=== PATIENT | female | born 1965 | race Hispanic/Latino ===

== ENCOUNTER → 2018-10-23 | Outpatient (CLI) | payer OTHER, MEDICARE | END | disposition home or self-care (01) | LOC: RAH 08:23 | PROVIDERS: ATTEND Internal Medicine | DX: Z12.31 Encounter for screening mammogram for malignant neoplasm of breast (principal) | CPT/HCPCS: 77067 ==

== ENCOUNTER → 2018-12-05 | Outpatient (CLI) | payer OTHER, MEDICARE | END | disposition home or self-care (01) | LOC: RAH 11:43 | PROVIDERS: ATTEND Internal Medicine | DX: I25.10 Atherosclerotic heart disease of native coronary artery without angina pectoris (principal); E66.01 Morbid (severe) obesity due to excess calories; M47.815 Spondylosis without myelopathy or radiculopathy, thoracolumbar region | CPT/HCPCS: 71046 ==

== ENCOUNTER → 2019-08-26 | Outpatient (CLI) | payer OTHER, MEDICARE | END | disposition home or self-care (01) | LOC: RAH 13:04 | PROVIDERS: ATTEND Internal Medicine | DX: M17.0 Bilateral primary osteoarthritis of knee (principal) | CPT/HCPCS: 73562 ==

== ENCOUNTER → 2020-04-26 | Outpatient (CLI) | payer OTHER, MEDICARE | END | disposition home or self-care (01) | LOC: RAH 10:38 | PROVIDERS: ATTEND Internal Medicine | DX: S62.626A Displaced fracture of middle phalanx of right little finger, initial encounter for closed fracture (principal); X58.XXXA Exposure to other specified factors, initial encounter; Y93.89 Activity, other specified; Y92.89 Other specified places as the place of occurrence of the external cause; Y99.8 Other external cause status | CPT/HCPCS: 73130 ==

== ENCOUNTER → 2020-12-27 | Outpatient (CLI) | payer OTHER, MEDICARE | END | disposition home or self-care (01) | LOC: RAH 09:39 | PROVIDERS: ATTEND Obstetrics & Gynecology | DX: Z12.31 Encounter for screening mammogram for malignant neoplasm of breast (principal) | CPT/HCPCS: 77067 ==

== ENCOUNTER 2022-12-09 02:27 | Observation (INO) | payer OTHER, MEDICARE ==
[~2022-12-09] VITALS: Ht 170.2 cm; Wt 80.4 kg
[2022-12-09 02:47] LABS: BASOPHILS % (AUTO) 0.7 % (0.0-5.0); HEMATOCRIT 41.1 % (36-48); LYMPHOCYTES % (AUTO) 19.3 % (21.0-51.0); MEAN CORPUSCULAR HEMOGLOBIN 30.8 pg (27.0-33.0); MEAN CORPUSCULAR HGB CONC 33.1 g/dL (32.0-36.0); MEAN CORPUSCULAR VOLUME 93.2 fL (79-99); MONOCYTES % (AUTO) 8.5 % (3.0-13.0); NEUTROPHILS % (AUTO) 70.2 % (40.0-77.0); PLATELET COUNT (AUTO) 326 K/uL (130-400); RED BLOOD CELL COUNT(AUTO) 4.41 MIL/uL (4.00-5.50); RED CELL DISTRIBUTION WIDTH 12.6 % (11.0-15.5)
[2022-12-09 02:58] LABS: CREATININE 0.6 mg/dL (0.5-1.5); POTASSIUM 3.8 mmol/L (3.5-5.1)
[2022-12-09] MEDS ORDERED: ONDANSETRON 4MG INJ IVP ONE (03:00)
[2022-12-09] MEDS ORDERED: ASPIRIN 81MG CHEW TAB PO ONE ×2 (03:00)
[2022-12-09 03:03] LABS: ALBUMIN 3.8 g/dL (3.5-5.0); TOTAL PROTEIN, SERUM 8.1 g/dL (6.0-8.3)
[2022-12-09] MEDS: NITROGLYCERIN 0.4 MG SL TAB SL ONE ×2 (03:09→03:11)
[2022-12-09] MEDS: NITROGLYCERIN 0.4 MG SL TAB SL PRN ×2 (03:11→05:51)
[2022-12-09] MEDS ORDERED: TEMAZEPAM 15 MG CAPSULE PO PRN (04:00)
[2022-12-09] MEDS ORDERED: LACTULOSE 20 GM/30 ML UDCUP PO PRN (04:00)
[2022-12-09] MEDS ORDERED: CLONIDINE HCL 0.1 MG TABLET PO PRN (04:00)
[2022-12-09] MEDS ORDERED: ONDANSETRON 4MG INJ IVP PRN (04:00)
[2022-12-09] MEDS ORDERED: HYDRALAZINE 20MG/ML VIAL IV PRN (04:00)
[2022-12-09 04:05] LABS: INR 0.93 (0.85-1.15); PROTHROMBIN TIME 9.5 SEC (9.6-11.6)
[2022-12-09 04:06] LABS: PARTIAL THROMBOPLASTIN TIME 25.7 SEC (26.3-35.5)
[2022-12-09 04:27] LABS: HEMOGLOBIN A1C 5.4 % (4.0-6.0)
[2022-12-09 05:15] VITALS: BP 154/95
[2022-12-09] MEDS ORDERED: trintellix PO (05:46)
[2022-12-09] MEDS ORDERED: DEXL60CA6 PO (05:46)
[2022-12-09] MEDS ORDERED: LINA145C PO (05:46)
[2022-12-09] MEDS ORDERED: ALPR0.5T8 PO (05:46)
[2022-12-09] MEDS: LACTATED RINGERS 1000ML 1,000 ML IV SCH ×2 (05:50→09:50)
[2022-12-09 05:53] LABS: AMPHET/METH SCREEN,URINE NEGATIVE (NEGATIVE); BARBITURATE SCREEN, URINE NEGATIVE (NEGATIVE); BENZODIAZEPINES SCREEN,URINE POSITIVE (NEGATIVE); CANNABINOID SCREEN,URINE NEGATIVE (NEGATIVE); COCAINE SCREEN,URINE POSITIVE (NEGATIVE); OPIATE SCREEN,URINE NEGATIVE (NEGATIVE); PHENCYCLIDINE SCREEN,URINE NEGATIVE (NEGATIVE)
[2022-12-09 08:00] VITALS: BP 157/73
[2022-12-09] MEDS: ASPIRIN 81 MG EC TAB PO SCH (09:09)
[2022-12-09 12:00] VITALS: BP 180/100
[2022-12-09 16:00] VITALS: BP 148/86
[2022-12-09 20:00] VITALS: BP 141/67
[2022-12-10] VITALS: BP 147/61
[2022-12-10] MEDS: LACTATED RINGERS 1000ML 1,000 ML IV SCH (01:09)
[2022-12-10 03:54] VITALS: BP 138/63
[2022-12-10 05:12] LABS: BASOPHILS % (AUTO) 0.6 % (0.0-5.0); EOSINOPHILS % (AUTO) 2.4 % (0.0-8.0); HEMATOCRIT 37.8 % (36-48); LYMPHOCYTES % (AUTO) 33.5 % (21.0-51.0); MEAN CORPUSCULAR HEMOGLOBIN 30.5 pg (27.0-33.0); MEAN CORPUSCULAR HGB CONC 32.3 g/dL (32.0-36.0); MEAN CORPUSCULAR VOLUME 94.5 fL (79-99); MONOCYTES % (AUTO) 10.5 % (3.0-13.0); NEUTROPHILS % (AUTO) 52.6 % (40.0-77.0); PLATELET COUNT (AUTO) 266 K/uL (130-400); RED CELL DISTRIBUTION WIDTH 12.5 % (11.0-15.5)
[2022-12-10 05:30] LABS: CREATININE 0.6 mg/dL (0.5-1.5); MAGNESIUM 1.9 mg/dL (1.80-2.40); PHOSPHORUS 4.3 mg/dL (2.5-4.9); POTASSIUM 3.9 mmol/L (3.5-5.1)
[2022-12-10 08:00] VITALS: BP 153/89
[2022-12-10] MEDS: ASPIRIN 81 MG EC TAB PO SCH (09:10)
[2022-12-10 12:00] VITALS: BP 153/81
[2022-12-10] MEDS ORDERED: METOCLOPRAMIDE 10 MG TABLET PO SCH (12:00)
[2022-12-10] MEDS ORDERED: ACETAMINOPHEN 325 MG TAB PO PRN (14:00)
[2022-12-10 16:00] VITALS: BP 136/81
[2022-12-10] MEDS ORDERED: METO10TA41 PO (16:38)
== END 2022-12-10 17:15 | disposition home or self-care (01) ==
LOC: EDH 02:27 → EDHIP 03:53 → 4BH 05:10
PROVIDERS: ADMIT Internal Medicine Critical Care Medicine; ATTEND Internal Medicine Critical Care Medicine
DX: R07.89 Other chest pain (principal); I10 Essential (primary) hypertension; E11.9 Type 2 diabetes mellitus without complications; F14.10 Cocaine abuse, uncomplicated; I21.9 Acute myocardial infarction, unspecified; I25.2 Old myocardial infarction; T40.5X1A Poisoning by cocaine, accidental (unintentional), initial encounter; E75.6 Lipid storage disorder, unspecified; Z79.899 Other long term (current) drug therapy
CPT/HCPCS: 96374; 96361 ×2; 96375; 99285; 83036; 84443; 84484 ×3; 80053; 80305; 83690; 85025 ×2; 85378; 85610; 85730; 85651; 36415 ×2; 71045; 93306; 93356; 93005; 83735; 84100; 80061; 80048; G0378 ×36; J0360; J2405

== ENCOUNTER → 2023-04-11 | Outpatient (CLI) | payer OTHER, MEDICARE ==
[~2023-04-11] MED LIST: ALPR0.5T8 PO; DEXL60CA6 PO; LINA145C PO; METO10TA41 PO; trintellix PO
== END | disposition home or self-care (01) ==
LOC: RAH 13:34
PROVIDERS: ATTEND Family Medicine
DX: Z12.31 Encounter for screening mammogram for malignant neoplasm of breast (principal)
CPT/HCPCS: 77067

== ENCOUNTER → 2024-04-14 | Outpatient (CLI) | payer OTHER, MEDICARE ==
[~2024-04-14] MED LIST changes: +DEXL60CA18 PO; -DEXL60CA6 PO
== END | disposition home or self-care (01) ==
LOC: RAH 12:35
PROVIDERS: ATTEND Family Medicine
DX: Z12.31 Encounter for screening mammogram for malignant neoplasm of breast (principal); N63.21 Unspecified lump in the left breast, upper outer quadrant; R92.323 Mammographic fibroglandular density, bilateral breasts
CPT/HCPCS: 77067